=== PATIENT | female | born 1950 | race Caucasian/White ===

== ENCOUNTER 2024-10-24 07:05 | Outpatient (CLI) | payer MEDICARE, OTHER, SELFPAY | END 2024-10-24 07:06 | disposition home or self-care (01) | LOC: AMB 10-27 02:16 | PROVIDERS: PCP Nurse Practitioner Family; Visit Provider Family Medicine | DX: R06.09 Other forms of dyspnea (principal) | CPT/HCPCS: A0425; A0427 ==

== ENCOUNTER 2024-10-24 07:35 | Inpatient (IN) | payer MEDICARE, OTHER, SELFPAY ==
[2024-10-24] VITALS (24 sets, daily range): BP systolic 123–162; BP diastolic 61–106; PULSE 68–107; RESP 20; TEMP 36.6–37.4; O2SAT 71–94; BMI 18.2
--- NOTE | 2024-10-24 08:14 | ED_ITS ---
HPI - SOB/Dyspnea General Time Seen by Provider: 08:14 Date Seen: 10/24/24 Chief Complaint: Shortness of Breath/Dyspnea Stated Complaint: COPD exacerbation Time Seen by Provider: 10/24/24 08:07 Source: patient, EMS, RN notes reviewed and old records reviewed Mode of arrival: EMS Limitations: no limitations History of Present Illness HPI Narrative: 74-year-old female with oxygen-dependent COPD presents with shortness of breath. Patient notes increased shortness of breath for about the last 2-3 days with increased cough. Overnight felt like she could breathe well and called EMS this morning. Denies chest pain, some chills, no vomiting but does have some nausea. No abdominal pain or diarrhea. No lower extremity swelling. Says she has been using her nebulizer treatments as prescribed. Lives independently, uses a walker but has noticed decreased activity tolerance over the last couple of days per Related Data Home Medications ?Medication ?Instructions ?Recorded ?Confirmed albuterol sulfate 90 mcg/actuation 2 puff inhalation Q6H PRN wheezing 10/24/24 10/24/24 aerosol inhaler budesonide 0.5 mg/2 mL suspension mg 10/24/24 for nebulization bupropion HCl 300 mg 24 hr tablet, 300 mg PO QAM 10/24/24 10/24/24 extended release gabapentin 100 mg capsule 100 mg PO BID 10/24/24 10/24/24 ipratropium 0.5 mg-albuterol 3 mg 3 ml inhalation 3XD PRN 10/24/24 10/24/24 (2.5 mg base)/3 mL nebulization soln propranolol 40 mg tablet 40 mg PO BID 10/24/24 10/24/24 Allergies Allergy/AdvReac Type Severity Reaction Status Date / Time No Known Drug Allergies Allergy Verified 10/24/24 07:42 Exam Narrative: Exam Narrative: General: Well-developed and well-nourished, no acute distress, frail appearing Head: Atraumatic and normocephalic Eyes: Pupils are equal reactive, extraocular motions intact, conjunctiva clear ENT: External nose and ears are normal, posterior pharynx without erythema or exudate Neck: No midline cervical tenderness, full spontaneous range of motion the neck, trachea midline, no adenopathy Heart: Regular rate and rhythm no murmurs or thrills Lungs: Poor air movement throughout with inspiratory and expiratory wheezes predominantly on the left Abdomen: Soft, nontender, nondistended with active bowel sounds Musculoskeletal: No tenderness, deformity, or edema Neurologic: Awake, alert, and oriented x3, no gross focal neurologic deficits, cranial nerves intact as tested Psych: Mood and affect are appropriate Skin: No rashes Const: Vital Signs, click to edit/add: Vital Signs - 24 hr 10/24/24 07:40 10/24/24 07:41 10/24/24 07:43 Temperature 98.1 F Pulse Rate 107 H Pulse Rate [Pulse Oximeter] 103 H Respiratory Rate 20 Blood Pressure 146/69 H Blood Pressure [Ri ght Upper Arm] 146/69 H Pulse Oximetry 75 L 94 Oxygen Delivery Me thod Room Air Nasal Cannula Oxygen Flow Rate 3 10/24/24 07:45 10/24/24 08:00 10/24/24 08:01 Temperature Pulse Rate 107 H 103 H Pulse Rate [Pulse Oximeter] Respiratory Rate Blood Pressure 146/106 H Blood Pressure [Ri ght Upper Arm] Pulse Oximetry 89 92 92 Oxygen Delivery Me thod Nasal Cannula Nasal Cannula Nasal Cannula Oxygen Flow Rate 2 2 2 Course Course ED Course: Reviewed prior records from [facility], history of hypertension, COPD. Patient seen and examined, presents with shortness of breath for the last couple of days, oxygen dependent COPD at baseline. On exam here, says she feels little bit better after receiving nebulized treatment by EMS. Mild increased work of breathing, does become breathless with talking, poor air movement throughout both lung christensen with some inspiratory-expiratory wheezes on the left. Consider COPD exacerbation secondary to underlying infectious etiology either viral or CAP, heart failure. No history of trauma so hemothorax or pneumothorax unlikely. Labs ordered along with repeat nebulizer treatment. Reevaluation(s) Time of Reevaluation #1: 09:21 Reevaluation #1: Chest x-ray independently interpreted by me negative for acute findings. Labs independently interpreted by me with leukocytosis, mild anemia which is stable for the patient, basic panel with a low anion gap and elevated bicarb, respiratory panel negative, troponin negative. Time of Reevaluation #2: 09:29 Reevaluation #2: Updated patient with finding the plan, recommended admission and she is agreeable. Care discussed with Carlita Betancourt PA-C hospitalist who accepts patient for admission Vital Signs Vital signs: Initial Vital Signs Pulse Oximetry 75 L 10/24/24 07:40 Oxygen Delivery Method Room Air 10/24/24 07:40 Vital Signs Pulse Oximetry 75 L 10/24/24 07:40 Oxygen Delivery Method Room Air 10/24/24 07:40 Temperature 98.1 F 10/24/24 07:43 Pulse Rate 103 H 10/24/24 08:01 Respiratory Rate 20 10/24/24 07:43 Blood Pressure 146/106 H 10/24/24 08:01 Pulse Oximetry 92 10/24/24 08:01 Oxygen Delivery Method Nasal Cannula 10/24/24 08:01 Oxygen Flow Rate 2 10/24/24 08:01 Medications Administered Medications: Discontinued Medications Generic Name Dose Route Start Last Admin Trade Name Freq PRN Reason Stop Dose Admin Albuterol/Ipratropium 1 neb 10/24/24 08:24 10/24/24 08:51 Iprat-Albut 0.5-2.5 Mg/3 Ml Neb IH 10/24/24 08:25 1 neb ONCE ONE Administration MDM - SOB/Dyspnea Lab Data Labs: Lab Results 10/24/24 10/24/24 10/24/24 Range/Units 07:48 08:24 08:38 WBC 11.02 H (4.50-11.00) K/uL RBC 3.31 L (4.00-5.20) m/uL Hgb 10.9 L (12.0-16.0) gm/dL Hct 35.7 (33.0-51.0) % MCV 108 H (80-100) fL MCH 33 (26-34) pg MCHC 31 L (32-36) gm/dL RDW Coeff of Airam 11.7 (11.5-15.5) % Plt Count 214 (140-440) K/uL Neut % (Auto) 79.3 H (42.0-72.0) % Lymph % (Auto) 7.4 L (20-44) % [place] % (Auto) 12.1 H (0.0-11.0) % Eos % (Auto) 0.1 (0.0-7.0) % Baso % (Auto) 0.3 (0.0-3.0) % Neut # (Auto) 8.70 H (1.7-7.0) K/uL Lymph # (Auto) 0.80 L (0.90-2.90) K/uL [place] # (Auto) 1.30 H (0.00-0.90) K/UL Eos # (Auto) 0.00 (0.00-0.50) K/uL Baso # (Auto) 0.00 (0.00-0.30) K/uL Abs Immat Gran (auto) 0.10 (0.00-0.30) K/uL Imm/Tot Granulo (auto) 0.8 % Sodium 140 (135-149) mmol/L Potassium 4.3 (3.6-5.1) mmol/L Chloride 97 (96-114) mmol/L Carbon Dioxide 40 H (20-32) mmol/L Anion Gap 3 L (7-15) mEq/L BUN 15 (7-30) mg/dL Creatinine 0.5 (0.5-1.5) mg/dL Estimated GFR 98 ml/min Glucose 132 H (60-115) mg/dL Calcium 9.1 (8.4-10.6) mg/dL Magnesium 1.8 (1.5-2.6) mg/dL SARS-CoV-2 (PCR) Negative SARS-CoV-2 (Negative) Influenza Type A (PCR) Negative PCR FLU A (Negative) Influenza Type B (PCR) Negative PCR FLU B (Negative) RSV (PCR) Negative PCR RSV (Negative) POC Troponin I 0.01 (0.01-0.04) ng/ml Discharge Plan Discharge Clinical Impression: Acute exacerbation of chronic obstructive pulmonary disease, Chronic hypoxemic respiratory failure Patient Disposition: Admitted As Observation
--- NOTE | 2024-10-24 08:24 | CRLHL7_ITS ---
For Patients: As a result of the Century Cures Act, medical imaging exams and procedure reports are released immediately into your electronic medical record. You may view this report before your referring provider. If you have questions, please contact your health care provider. INDICATION: Dyspnea. Cough. COMPARISON: April 09, 2022 TECHNIQUE: Single-view portable study FINDINGS: TUBES AND LINES: None. HEART AND MEDIASTINUM: The heart size is normal. The mediastinal contour appears normal for patient age. LUNGS AND PLEURAL SPACES: Probable COPD. Basilar opacities favor atelectasis or scarring over aspiration or pneumonia. Left-sided findings probably related to remote granulomatous infection.The pleural spaces are unremarkable. OSSEOUS STRUCTURES: Demineralization, degenerative changes, scoliosis and postsurgical changes. IMPRESSION: COPD pattern. Basilar opacities favor atelectasis or scarring over aspiration or pneumonia. Left-sided findings probably indicating remote granulomatous infection. Dictated by Jeremy Barnard MD @ 10/24/2024 9:06:45 AM (Electronically Signed)
[2024-10-24 08:32] LABS: PCR FLU A Negative PCR FLU A (Negative); PCR FLU B Negative PCR FLU B (Negative); PCR RSV Negative PCR RSV (Negative); SARS PCR* Negative SARS-CoV-2 (Negative)
[2024-10-24 08:48] LABS: Basophils Percent Auto 0.3 % (0.0-3.0); Eosinophils Percent Auto 0.1 % (0.0-7.0); Hematocrit 35.7 % (33.0-51.0); Hemoglobin* 10.9 gm/dL (12.0-16.0); Immature Granulocytes Pct Auto 0.8 %; Lymphocytes Percent Auto 7.4 % (20-44); Mean Corpuscular HGB Conc 31 gm/dL (32-36); Mean Corpuscular Hemoglobin 33 pg (26-34); Mean Corpuscular Volume 108 fL (80-100); Monocytes Percent Auto 12.1 % (0.0-11.0); Neutrophils Percent Auto 79.3 % (42.0-72.0); Platelet Count* 214 K/uL (140-440); RDW Coefficient of Variation % 11.7 % (11.5-15.5); Red Blood Count 3.31 m/uL (4.00-5.20); White Blood Count* 11.02 K/uL (4.50-11.00)
[2024-10-24] MEDS: IPRAT-ALBUT 0.5-2.5 MG/3 ML NEB 1 NEB IH ×3 (08:51→19:57)
[2024-10-24 08:53] LABS: Slide Review Reflex No
[2024-10-24 08:59] LABS: Chloride* 97 mmol/L (96-114); Potassium* 4.3 mmol/L (3.6-5.1); Sodium* 140 mmol/L (135-149)
[2024-10-24 09:02] LABS: Blood Urea Nitrogen* 15 mg/dL (7-30); Creatinine* 0.5 mg/dL (0.5-1.5); Estimated Glomerular Filt Rate 98 ml/min; Glucose* 132 mg/dL (60-115)
[2024-10-24 09:03] LABS: Calcium* 9.1 mg/dL (8.4-10.6); Magnesium* 1.8 mg/dL (1.5-2.6)
[2024-10-24 09:09] LABS: Anion Gap 3 mEq/L (7-15); Carbon Dioxide* 40 mmol/L (20-32)
[2024-10-24 09:14] LABS: Troponin, Point-of-Care* 0.01 ng/ml (0.01-0.04)
[2024-10-24] MEDS: DOXYCYCLINE HYCLATE 100 MG PO ×2 (09:32→20:44)
[2024-10-24] MEDS: METHYLPREDNISOLONE SOD SUCC 62.5 MG/ML (125) 125 MG IVP ×3 (09:32→23:07)
[2024-10-24] MEDS: cefTRIAXone 1 GM in 0.9 % SODIUM CHLORIDE Mini-bag 100 ML IVPB (09:32)
--- NOTE | 2024-10-24 10:03 | PM.IMHP1 ---
Hospitalist- H&P: HPI History of Present Illness Date Seen: 10/24/24 Chief complaint: COPD exacerbation Narrative: Lolita Sevilla is a 74 year old female past medical history significant for COPD, oxygen dependent, typically 2-3 L, hypertension, peripheral neuropathy, depressive disorder, dysphagia, GERD, tremor is admitted to the medical floor from the ED for further management acute on chronic recurrent COPD exacerbation. Patient reports increasing shortness of breath, dyspnea on exertion, cough since Thanks. Tells me she can typically walk 6 ft at the most before having to rest. Last , she was not even able to walk 6 ft. She has had an increasing congested cough. She has been using her home nebulizers without relief. She denies recent fevers. Denies headaches or dizziness. Denies chest pain. Has had no nausea vomiting or diarrhea. Former smoker. Lives independently. Code status DNR/DNI. PCP is Linda Meneses NP, [facility] [place] Review of Systems Narrative: REVIEW OF SYSTEMS: Complete review of systems performed and negative unless otherwise stated in HPI or below. [facility] Medical History (Updated 10/24/24 @ 15:33 by Carlita Betancourt PA-C) Dysphagia ?R13.10 - Dysphagia, unspecified (ICD-10) COPD (chronic obstructive pulmonary disease) ?J44.9 - Chronic obstructive pulmonary disease, unspecified (ICD-10) Depressive disorder ?F32.A - Depression, unspecified (ICD-10) GERD (gastroesophageal reflux disease) ?K21.9 - Gastro-esophageal reflux disease without esophagitis (ICD-10) Peripheral neuropathy ?G62.9 - Polyneuropathy, unspecified (ICD-10) Hypertension ?I10 - Essential (primary) hypertension (ICD-10) Tremors of nervous system ?R25.1 - Tremor, unspecified (ICD-10) Respiratory failure with hypercapnia ?J96.92 - Respiratory failure, unspecified with hypercapnia (ICD-10) Acute on chronic hypoxic respiratory failure ?J96.21 - Acute and chronic respiratory failure with hypoxia (ICD-10) Social History What is your current living situation?: I presently have a place to live Problems where you live: no known problems Problems where you live details: no known problems In the past 12 months, utilities in danger of being shut off: no In the past 12 mos, have been you worried that your food would run out before you had money to buy more?: never true In the past 12 mos, the food you bought just didn't last and you didn't have money to buy more?: never true Highest level of school completed/degree received: some college, no degree Smoking Status: Former smoker Do you use any of these nicotine containing products: None How often do you have a drink containing alcohol: never AUDIT-C Alcohol total score: 0 Non-prescribed substance use: denies use Caffeine: No How often does anyone, including family, friends and others, physically hurt you: never How often does anyone, including family, friends and others, insult or talk down to you: never How often does anyone, including family, friends and others, threaten you with harm: never How often does anyone, including family, friends and others, scream or curse at you: never Meds Home Medications and Allergies Home Medications ?Medication ?Instructions ?Recorded ?Confirmed ?Type albuterol sulfate 90 mcg/actuation 2 puff inhalation Q6H PRN wheezing 10/24/24 10/24/24 History aerosol inhaler budesonide 0.5 mg/2 mL suspension 0.5 mg inhalation BID 10/24/24 10/24/24 History for nebulization bupropion HCl 300 mg 24 hr tablet, 300 mg PO QAM 10/24/24 10/24/24 History extended release gabapentin 100 mg capsule 100 mg PO BID 10/24/24 10/24/24 History ipratropium 0.5 mg-albuterol 3 mg 3 ml inhalation TID PRN 10/24/24 10/24/24 History (2.5 mg base)/3 mL nebulization soln propranolol 40 mg tablet 40 mg PO BID 10/24/24 10/24/24 History Allergies Allergy/AdvReac Type Severity Reaction Status Date / Time No Known Drug Allergies Allergy Verified 10/24/24 07:42 Exam Narrative: Exam Narrative: PHYSICAL EXAM General: Pleasant, conversant, NAD, cachectic HEENT: Normocephalic, atraumatic, sclera white, EOMI, oral mucosa moist Cardiovascular: RRR, S1S2. No pitting edema Pulmonary: Diminished breath sounds throughout, no expiratory wheezes, dyspnea noted on 1.5 L Abdominal: Soft, nondistended, NTTP Neurological: Alert, answering questions appropriately, cranial nerves intact, no focal findings Extremities: No gross joint deformity or swelling. AROMI. Neurovascularly intact Skin: Warm, dry. Const: Vital Signs, click to edit/add: Vital Signs - 24 hr 10/24/24 07:40 10/24/24 07:41 10/24/24 07:43 Temperature 98.1 F Pulse Rate 107 H Pulse Rate [Pulse Oximeter] 103 H Respiratory Rate 20 Blood Pressure 146/69 H Blood Pressure [Ri ght Upper Arm] 146/69 H Pulse Oximetry 75 L 94 Oxygen Delivery Me thod Room Air Nasal Cannula Oxygen Flow Rate 3 10/24/24 07:45 10/24/24 08:00 10/24/24 08:01 Temperature Pulse Rate 107 H 103 H Pulse Rate [Pulse Oximeter] Respiratory Rate Blood Pressure 146/106 H Blood Pressure [Ri ght Upper Arm] Pulse Oximetry 89 92 92 Oxygen Delivery Me thod Nasal Cannula Nasal Cannula Nasal Cannula Oxygen Flow Rate 2 2 2 10/24/24 08:30 10/24/24 08:45 10/24/24 09:00 Temperature Pulse Rate 100 101 H 97 Pulse Rate [Pulse Oximeter] Respiratory Rate Blood Pressure Blood Pressure [Ri ght Upper Arm] Pulse Oximetry 94 85 L 85 L Oxygen Delivery Me thod Nasal Cannula Nasal Cannula Nasal Cannula Oxygen Flow Rate 2 2 3 10/24/24 09:02 10/24/24 09:15 10/24/24 09:30 Temperature Pulse Rate 97 92 94 Pulse Rate [Pulse Oximeter] Respiratory Rate Blood Pressure 123/61 Blood Pressure [Ri ght Upper Arm] Pulse Oximetry 85 L 83 L 92 Oxygen Delivery Me thod Nasal Cannula Nasal Cannula Nasal Cannula Oxygen Flow Rate 3 3 3 10/24/24 09:45 Temperature Pulse Rate 96 Pulse Rate [Pulse Oximeter] Respiratory Rate Blood Pressure Blood Pressure [Ri ght Upper Arm] Pulse Oximetry 92 Oxygen Delivery Me thod Nasal Cannula Oxygen Flow Rate 3 Hospitalist - H&P: Result Labs Labs: Short CBC 10/24/24 Range/Units 08:38 WBC 11.02 H (4.50-11.00) K/uL Hgb 10.9 L (12.0-16.0) gm/dL Hct 35.7 (33.0-51.0) % Plt Count 214 (140-440) K/uL [facility] 10/24/24 08:38 Sodium 140 Potassium 4.3 Chloride 97 Carbon Dioxide 40 H BUN 15 Creatinine 0.5 Glucose 132 H Calcium 9.1 ECG Attestation: I personally reviewed and interpreted this ECG as follows: Interpretation: Sinus tachycardia, rate 102, QTC 450 Imaging Chest x-ray: Attestation: I have reviewed the pertinent imaging results. Radiologist's impression: COPD pattern. Basilar opacities favor atelectasis or scarring over aspiration or pneumonia. Left-sided findings probably indicating remote granulomatous infection. Assessment and Plan Assessment and plan (1) Acute on chronic hypoxic respiratory failure: Problem comment: -room-air oxygen saturation 75% in the ED -in setting of acute COPD exacerbation with hypercapnia -chronically oxygen dependent 2-3 L -RT for pulmonary support Status: Acute (2) Respiratory failure with hypercapnia: Problem comment: -VBG pH 7.351, pCO2 70, PO2 31.6, HC03 38. Will recheck at 5:00 p.m. -serum carbon dioxide 40, baseline > 30 -mentating appropriately though fatigued -RT recommending high-flow oxygen. Consider CPAP if necessary Status: Acute (3) Acute exacerbation of chronic obstructive pulmonary disease: Problem comment: -chronic oxygen dependent 2-3 L -continue oxygen supplementation to maintain saturations 88-92%, monitoring VBG for now -continue ceftriaxone and oral doxycycline as initiated in ED -triple swab negative, strep pneumo/Legionella ordered -prednisone 40 mg p.o. daily x5 days. Received methylprednisolone 125 mg in ED -scheduled nebs, p.r.n. nebs, Mucinex b.i.d. -incentive spirometry, aerobika Status: Acute (4) Tremors of nervous system: Problem comment: -continue propranolol b.i.d. Status: Acute Total Time Spent Total Time Spent: Total time spent caring for the patient today was 75 minutes. This includes time spent for the visit reviewing the chart, time spent during the visit, time spent after the visit and documentation and planning in coordination of care.
--- NOTE | 2024-10-24 10:05 | ED.NURSE ---
Pt report given to elias Blankenship RN. Pt to 262.
[2024-10-24] MEDS: PROPRANOLOL 20 MG TABLET 40 MG PO ×2 (12:31→20:44)
[2024-10-24] MEDS: MAGNESIUM IV 2 GM/50 ML PIGGYBACK IVPB (12:32)
[2024-10-24 12:42] LABS: HCO3 VBG 38 mmol/L (21-28); PO2 VBG 31.6 mmHG (25-47); pH VBG 7.351 (7.32-7.43)
[2024-10-24] MEDS: guaiFENesin 600 MG TAB.ER.12H PO ×2 (12:42→20:44)
[2024-10-24 12:44] LABS: PCO2 VBG 70 mmHG (40-50)
[2024-10-24 13:01] LABS: Lactate Dehydrogenase* 167 U/L (120-246)
--- NOTE | 2024-10-24 15:36 | RESP.RT ---
Pt here with COPD exacerbation. VBG on unit noted to be: 7.351, pCO2 70, PO2 31.6, HC03 38. She is not short of breath or in any distress. RR rate regular at 20, watching TV on 2L NC. She is chronically on 2L at home. BBS diminished, no wheezing noted. She does have a strong congested non productive cough. Decision to put on HFNC at 20-25L and FIO2 25-35%. Would give nebs around the clock also.
[2024-10-24 17:07] LABS: HCO3 VBG 38 mmol/L (21-28); PO2 VBG < 30.1 mmHG (25-47); pH VBG 7.381 (7.32-7.43)
[2024-10-24 17:14] LABS: PCO2 VBG 65 mmHG (40-50)
[2024-10-24] MEDS: ALBUTEROL SULFATE 2.5 MG/3 ML VIAL.NEB NEB ×2 (18:25→23:07)
--- NOTE | 2024-10-24 18:40 | PC.NURSE ---
End of shift: patient alert and oriented. VSS, on High flow settings at 20L 30%O2, and 36 temp. Not much of an appetite per patient but tolerating a reg diet. Patient denies n/v, c/o headache and possible sinus infection d/t left side of face pain. Denies pain anywhere else. Patient has a moist cough. Ambulates short distances with wheeled walker. IV in L hand SL.
[2024-10-24] MEDS: ENOXAPARIN 40 MG/0.4 ML INJ SUBCUT (20:44)
[2024-10-24] MEDS: GABAPENTIN 100 MG CAPSULE PO (20:44)
[2024-10-24] MEDS: SODIUM CHLORIDE 0.9 % (FLUSH) 10 ML SYRINGE 5 ML IVF (20:47)
[2024-10-24] MEDS: BUDESONIDE 0.5 MG/2ML NEB NEB (20:48)
[2024-10-24 23:38] LABS: NT Pro B Type NatriureticPept* 620 pg/mL
[2024-10-25] VITALS (9 sets, daily range): BP systolic 123–152; BP diastolic 74–93; PULSE 66–80; RESP 22–24; TEMP 36.5–37.2; O2SAT 69–94; BMI 18.2
[2024-10-25] MEDS: ALBUTEROL SULFATE 2.5 MG/3 ML VIAL.NEB NEB ×5 (02:24→21:36)
[2024-10-25] MEDS: IPRAT-ALBUT 0.5-2.5 MG/3 ML NEB 1 NEB IH ×4 (02:30→21:05)
[2024-10-25] MEDS: METHYLPREDNISOLONE SOD SUCC 62.5 MG/ML (125) 125 MG IVP ×4 (05:59→23:28)
--- NOTE | 2024-10-25 06:24 | PC.NURSE ---
End of shift [id number]: Pt has been A&O and afebrile overnight. VSS with exception to O2 needs. HFNC has been adjusted throughout the night, staying in the 20-25L and 25-35% FiO2 range. Pt?s O2 sats range from 68% to 93% overnight. She is Ax1 for transfers- sitting on rolling walker to and from while placing her on 2-3L NC for transfer. Pt does not c/o any pain, nausea or SOB. PIV in left AC SL and C/D/I. LS diminished in posterior bases but no wheezing heard. Pt continues to have a wet, non-productive cough. We still need a urine sample for legionella testing. ?
[2024-10-25 07:10] LABS: HCO3 VBG 39 mmol/L (21-28); PO2 VBG < 30.1 mmHG (25-47); pH VBG 7.386 (7.32-7.43)
[2024-10-25 07:17] LABS: PCO2 VBG 64 mmHG (40-50)
[2024-10-25 07:35] LABS: Chloride* 96 mmol/L (96-114); Sodium* 139 mmol/L (135-149)
[2024-10-25 07:36] LABS: Hematocrit 36.8 % (33.0-51.0); Hemoglobin* 11.3 gm/dL (12.0-16.0); Mean Corpuscular HGB Conc 31 gm/dL (32-36); Mean Corpuscular Hemoglobin 33 pg (26-34); Mean Corpuscular Volume 106 fL (80-100); Platelet Count* 251 K/uL (140-440); Red Blood Count 3.46 m/uL (4.00-5.20); White Blood Count* 14.83 K/uL (4.50-11.00)
[2024-10-25 07:38] LABS: Anion Gap 4 mEq/L (7-15); Blood Urea Nitrogen* 16 mg/dL (7-30); Calcium* 9.2 mg/dL (8.4-10.6); Carbon Dioxide* 39 mmol/L (20-32); Creatinine* 0.5 mg/dL (0.5-1.5); Est. Creatinine Clearance* 31.95; Estimated Glomerular Filt Rate 98 ml/min; Glucose* 133 mg/dL (60-115); Potassium* 4.5 mmol/L (3.6-5.1)
[2024-10-25 07:39] LABS: Slide Review Reflex No
[2024-10-25] MEDS: DOXYCYCLINE HYCLATE 100 MG PO ×2 (08:35→21:02)
[2024-10-25] MEDS: predniSONE 20 MG TABLET 40 MG PO (08:35)
[2024-10-25] MEDS: guaiFENesin 600 MG TAB.ER.12H PO ×2 (08:35→21:04)
[2024-10-25] MEDS: PROPRANOLOL 20 MG TABLET 40 MG PO ×2 (08:36→21:03)
[2024-10-25] MEDS: GABAPENTIN 100 MG CAPSULE PO ×2 (08:36→21:03)
[2024-10-25] MEDS: buPROPion XL 150 MG TABLET 300 MG PO (08:36)
[2024-10-25] MEDS: BUDESONIDE 0.5 MG/2ML NEB NEB ×2 (08:39→20:58)
[2024-10-25] MEDS: cefTRIAXone 1 GM in 0.9 % SODIUM CHLORIDE Mini-bag 100 ML IVPB (08:39)
[2024-10-25] MEDS: SODIUM CHLORIDE 0.9 % (FLUSH) 10 ML SYRINGE 5 ML IVF ×2 (08:45→20:58)
[2024-10-25 11:28] LABS: Legionella pneumo Ag Urine L. pneumo Negative (Negative); S pneumo Ag Urine S. pneumo Negative (Negative)
--- NOTE | 2024-10-25 12:20 | PM.IMPN1 ---
Progress Note: A&P Assessment and plan (1) Acute on chronic hypoxic respiratory failure: Problem details: -room-air oxygen saturation 75% in the ED. Baseline, per patient, is mid 80s -in setting of acute COPD exacerbation with hypercapnia -chronically oxygen dependent 2-3 L -RT for pulmonary support Status: Acute (2) Respiratory failure with hypercapnia: Problem details: -VBG pH 7.351, pCO2 70, PO2 31.6, HC03 38. PCO2 down trending, currently 64 -serum carbon dioxide 40, baseline > 30 -mentating appropriately though fatigued -RT recommending high-flow oxygen. Wean as able. Consider CPAP if necessary Status: Acute (3) Acute exacerbation of chronic obstructive pulmonary disease: Problem details: -chronic oxygen dependent 2-3 L -continue oxygen supplementation to maintain saturations 82-90%, monitoring VBG for now -continue ceftriaxone and oral doxycycline as initiated in ED -triple swab negative, strep pneumo/Legionella negative -prednisone 40 mg p.o. daily x5 days - changed to IV methylprednisolone. Received first dose methylprednisolone 125 mg in ED. (expected bump in WBC noted) -scheduled nebs, p.r.n. nebs, Mucinex b.i.d. -incentive spirometry, aerobika Status: Acute (4) Tremors of nervous system: Problem details: -continue propranolol b.i.d. Status: Acute Time Spent With Patient Total time spent: Total time spent caring for the patient today was 45 minutes. This includes time spent for the visit reviewing the chart, time spent during the visit, time spent after the visit and documentation and planning in coordination of care. Subjective Date Seen: 10/25/24 Interval history: Patient is seen sitting up in bed this morning. Reports feeling somewhat better. Chest congestion has loosened. Denies chest pain. Denies headache or dizziness. Remains afebrile. Overnight, oxygenation 82-90%. Patient reports her normal saturation when she is feeling well is mid 80s. PCO2 down trending. Exam Narrative: Exam Narrative: PHYSICAL EXAM General: Pleasant, conversant, NAD, cachectic Cardiovascular: RRR, S1S2. No pitting edema Pulmonary: Diminished breath sounds throughout, no expiratory wheezes, dyspnea Neurological: Alert, answering questions appropriately, cranial nerves intact, no focal findings Extremities: No gross joint deformity or swelling. AROMI. Neurovascularly intact Skin: Warm, dry. Const: Vital Signs, click to edit/add: Vital Signs - 24 hr 10/24/24 15:00 10/24/24 15:00 10/24/24 15:39 Temperature 97.8 F Pulse Rate [Pulse Oximeter] 68 Respiratory Rate 20 20 Blood Pressure [Ri ght Arm] 132/68 Pulse Oximetry 88 Oxygen Delivery Me thod High Flow Nasal Ca nnula Oxygen Flow Rate 25 20 Fraction of Inspir ed Oxygen 30 28 10/24/24 17:39 10/24/24 19:40 10/24/24 19:40 Temperature 99.3 F Pulse Rate [Pulse Oximeter] 77 Respiratory Rate 20 Blood Pressure [Ri ght Arm] 135/65 Pulse Oximetry 87 L Oxygen Delivery Me thod High Flow Nasal Ca nnula Oxygen Flow Rate 20 Fraction of Inspir ed Oxygen 30 30 30 10/24/24 21:01 10/24/24 23:17 10/24/24 23:17 Temperature Pulse Rate [Pulse Oximeter] 72 Respiratory Rate 20 Blood Pressure [Ri ght Arm] Pulse Oximetry Oxygen Delivery Me thod Oxygen Flow Rate Fraction of Inspir ed Oxygen 30 30 10/24/24 23:17 10/24/24 23:50 10/24/24 23:56 Temperature 98.1 F Pulse Rate [Pulse Oximeter] 72 Respiratory Rate 20 Blood Pressure [Ri ght Arm] 128/71 Pulse Oximetry 93 Oxygen Delivery Me thod High Flow Nasal Ca nnula Oxygen Flow Rate 20 Fraction of Inspir ed Oxygen 30 30 35 10/25/24 01:00 10/25/24 02:49 10/25/24 03:00 Temperature 98.9 F Pulse Rate [Pulse Oximeter] 80 Respiratory Rate 22 Blood Pressure [Ri ght Arm] 137/76 Pulse Oximetry 83 L Oxygen Delivery Me thod High Flow Nasal Ca nnula Oxygen Flow Rate 25 Fraction of Inspir ed Oxygen 35 30 30 10/25/24 03:33 10/25/24 05:00 10/25/24 07:00 Temperature Pulse Rate [Pulse Oximeter] Respiratory Rate Blood Pressure [Ri ght Arm] Pulse Oximetry Oxygen Delivery Me thod Oxygen Flow Rate Fraction of Inspir ed Oxygen 30 35 35 10/25/24 07:00 10/25/24 10:39 Temperature Pulse Rate [Pulse Oximeter] 80 Respiratory Rate 22 Blood Pressure [Ri ght Arm] 123/74 Pulse Oximetry 86 L Oxygen Delivery Me thod High Flow Nasal Ca nnula Oxygen Flow Rate 25 25 Fraction of Inspir ed Oxygen 35 35 Labs Labs: Laboratory Results - last 24 hr 10/24/24 10/24/24 10/24/24 08:38 12:37 17:01 WBC RBC Hgb Hct MCV MCH MCHC Plt Count VBG pH 7.351 7.381 VBG pCO2 70 H* 65 H* VBG pO2 31.6 < 30.1 VBG HCO3 38 H 38 H Sodium Potassium Chloride Carbon Dioxide Anion Gap BUN Creatinine Estimated Creat Clear Estimated GFR Glucose Calcium Lactate Dehydrogenase 167 NT-Pro-B Natriuret Pep 620 Urine L. pneumophilia Ag Urine Strep pneumoniae Ag 10/24/24 10/25/24 Unknown 07:01 WBC 14.83 H RBC 3.46 L Hgb 11.3 L Hct 36.8 MCV 106 H MCH 33 MCHC 31 L Plt Count 251 VBG pH 7.386 VBG pCO2 64 H* VBG pO2 < 30.1 VBG HCO3 39 H Sodium 139 Potassium 4.5 Chloride 96 Carbon Dioxide 39 H Anion Gap 4 L BUN 16 Creatinine 0.5 Estimated Creat Clear 31.95 Estimated GFR 98 Glucose 133 H Calcium 9.2 Lactate Dehydrogenase NT-Pro-B Natriuret Pep Urine L. pneumophilia Ag L. pneumo Negative Urine Strep pneumoniae Ag S. pneumo Negative
[2024-10-25] MEDS: BENZOCAINE/MENTHOL 1 EACH LOZENGE MUCOUS MEM (13:51)
--- NOTE | 2024-10-25 18:28 | PC.NURSE ---
shift note: pt place on 2L pnc O2 this a.m with sats 87-91%. pt denies c.p or pressure. pt has increased moist cough. Pt producing thick yellow phlegm. Pt using aerobika with prompting q1hr. Ls course throughout. IV patent. pt placed on cushion in bed due to upper buttocks red.
[2024-10-25] MEDS: ENOXAPARIN 40 MG/0.4 ML INJ SUBCUT (21:04)
[2024-10-26] VITALS (13 sets, daily range): BP systolic 146–180; BP diastolic 74–91; PULSE 64–72; RESP 20–24; TEMP 36.6–36.9; O2SAT 81–96
[2024-10-26] MEDS: ALBUTEROL SULFATE 2.5 MG/3 ML VIAL.NEB NEB ×5 (01:25→18:29)
[2024-10-26] MEDS: IPRAT-ALBUT 0.5-2.5 MG/3 ML NEB 1 NEB IH ×4 (02:36→21:01)
[2024-10-26] MEDS: METHYLPREDNISOLONE SOD SUCC 62.5 MG/ML (125) 125 MG IVP ×3 (06:05→18:29)
[2024-10-26 06:38] LABS: HCO3 VBG 41 mmol/L (21-28); PO2 VBG < 30.1 mmHG (25-47); pH VBG 7.353 (7.32-7.43)
[2024-10-26 06:40] LABS: PCO2 VBG 73 mmHG (40-50)
[2024-10-26 06:47] LABS: Hematocrit 36.9 % (33.0-51.0); Hemoglobin* 11.3 gm/dL (12.0-16.0); Mean Corpuscular HGB Conc 31 gm/dL (32-36); Mean Corpuscular Hemoglobin 33 pg (26-34); Mean Corpuscular Volume 107 fL (80-100); Platelet Count* 282 K/uL (140-440); Red Blood Count 3.46 m/uL (4.00-5.20); White Blood Count* 17.57 K/uL (4.50-11.00)
[2024-10-26 06:53] LABS: Slide Review Reflex No
[2024-10-26 07:09] LABS: Chloride* 97 mmol/L (96-114); Potassium* 4.1 mmol/L (3.6-5.1); Sodium* 140 mmol/L (135-149)
[2024-10-26 07:12] LABS: Creatinine* 0.5 mg/dL (0.5-1.5); Est. Creatinine Clearance* 32.18; Estimated Glomerular Filt Rate 98 ml/min
[2024-10-26 07:13] LABS: Blood Urea Nitrogen* 17 mg/dL (7-30); Glucose* 135 mg/dL (60-115)
[2024-10-26 07:20] LABS: Anion Gap 8 mEq/L (7-15); Carbon Dioxide* 35 mmol/L (20-32)
--- NOTE | 2024-10-26 07:47 | PC.NURSE ---
Pt is alert and oriented x3. Afebrile. Pt denies pain, chest pain, and N/V. SOB is noted and reported with exertion. Pt was on 1-2 liters throughout night to maintains O2 stats of 82-90%. Pt is up SBA with walker and gait belt to bathroom, voiding, and tolerating a regular diet.
[2024-10-26] MEDS: BUDESONIDE 0.5 MG/2ML NEB NEB ×2 (08:48→21:02)
[2024-10-26] MEDS: DOXYCYCLINE HYCLATE 100 MG PO ×2 (09:26→21:01)
[2024-10-26] MEDS: GABAPENTIN 100 MG CAPSULE PO ×2 (09:26→21:01)
[2024-10-26] MEDS: SODIUM CHLORIDE 0.9 % (FLUSH) 10 ML SYRINGE 5 ML IVF ×2 (09:26→21:02)
[2024-10-26] MEDS: buPROPion XL 150 MG TABLET 300 MG PO (09:26)
[2024-10-26] MEDS: guaiFENesin 600 MG TAB.ER.12H PO ×2 (09:26→21:01)
[2024-10-26] MEDS: PROPRANOLOL 20 MG TABLET 40 MG PO ×2 (09:26→21:01)
[2024-10-26] MEDS: cefTRIAXone 1 GM in 0.9 % SODIUM CHLORIDE Mini-bag 100 ML IVPB (09:28)
--- NOTE | 2024-10-26 11:21 | PM.IMPN1 ---
Progress Note: A&P Assessment and plan (1) Acute on chronic hypoxic respiratory failure: Problem details: -room-air oxygen saturation 75% in the ED. Baseline, per patient, is mid 80s -in setting of acute COPD exacerbation with hypercapnia -chronically oxygen dependent 2-3 L -RT for pulmonary support Status: Acute (2) Respiratory failure with hypercapnia: Problem details: -VBG pH 7.351, pCO2 70, PO2 31.6, HC03 38. PCO2 down trending, currently 64 -serum carbon dioxide 40, baseline > 30 -mentating appropriately though fatigued -RT recommending high-flow oxygen. Wean as able. Consider CPAP if necessary 10/26 was off of high-flow yesterday, pCO2 has increased, congestion remains. Will restart high-flow today and monitor improvement Status: Acute (3) Acute exacerbation of chronic obstructive pulmonary disease: Problem details: -chronic oxygen dependent 2-3 L -continue oxygen supplementation to maintain saturations 82-90%, monitoring VBG for now -continue ceftriaxone and oral doxycycline as initiated in ED -triple swab negative, strep pneumo/Legionella negative -prednisone 40 mg p.o. daily x5 days - changed to IV methylprednisolone. Received first dose methylprednisolone 125 mg in ED. (expected bump in WBC noted) -scheduled nebs, p.r.n. nebs, Mucinex b.i.d. -incentive spirometry, aerobika Status: Acute (4) Tremors of nervous system: Problem details: -continue propranolol b.i.d. Status: Acute (5) Dysphagia: Problem details: -previously evaluated by ENT, Neurology, GI. Most recent EGD 07/2023. Did not complete further recommended studies; needs sedation for some per patient report -PARTS SALES MANAGER for limited evaluation during hospital course -will f/u with PCP again for referrals for ongoing evaluation Status: Acute (6) Constipation: Problem details: -last BM 10/22. H/o chronic constipation but not on a bowel regimen at home -Senna/Docusate bid, Miralax now and prn. Recommend daily psyllium Status: Acute Time Spent With Patient Total time spent: Total time spent caring for the patient today was 45 minutes. This includes time spent for the visit reviewing the chart, time spent during the visit, time spent after the visit and documentation and planning in coordination of care. Subjective Date Seen: 10/26/24 Interval history: Patient is seen sitting up in bed this morning having just finished a nebulizer treatment. Feeling okay. Cough loosening. Remains dyspneic. This morning's pCO2 is elevated to 73 again. Apparently there was concern with dysfunctioning of the high-flow machine so she had been on oxygen per nasal cannula the entire day. Remains afebrile. Denies chest pain. No headache or dizziness. Tolerating orals without nausea vomiting. Exam Narrative: Exam Narrative: PHYSICAL EXAM General: Pleasant, conversant, NAD, cachectic Cardiovascular: RRR, S1S2. No pitting edema Pulmonary: Diminished breath sounds throughout, no expiratory wheezes, dyspnea Neurological: Alert, answering questions appropriately, cranial nerves intact, no focal findings Extremities: No gross joint deformity or swelling. AROMI. Neurovascularly intact Skin: Warm, dry. Const: Vital Signs, click to edit/add: Vital Signs - 24 hr 10/25/24 15:00 10/25/24 19:17 10/25/24 23:20 Temperature 97.7 F 98.6 F 98.1 F Pulse Rate [Pulse Oximeter] 73 72 66 Respiratory Rate 22 24 24 Blood Pressure [Ri ght Arm] 140/93 H 148/76 H 152/86 H Pulse Oximetry 91 94 91 Oxygen Delivery Me thod Nasal Cannula Nasal Cannula Nasal Cannula Oxygen Flow Rate 2 2 1 10/25/24 23:20 10/26/24 02:35 10/26/24 06:41 Temperature 98.4 F Pulse Rate [Pulse Oximeter] 66 71 Respiratory Rate 24 20 Blood Pressure [Ri ght Arm] 149/78 H Pulse Oximetry 90 92 Oxygen Delivery Me thod Nasal Cannula Oxygen Flow Rate 1.5 1 Labs Labs: Laboratory Results - last 24 hr 10/24/24 10/26/24 Unknown 06:14 WBC 17.57 H RBC 3.46 L Hgb 11.3 L Hct 36.9 MCV 107 H MCH 33 MCHC 31 L Plt Count 282 VBG pH 7.353 VBG pCO2 73 H* VBG pO2 < 30.1 VBG HCO3 41 H Sodium 140 Potassium 4.1 Chloride 97 Carbon Dioxide 35 H Anion Gap 8 BUN 17 Creatinine 0.5 Estimated Creat Clear 32.18 Estimated GFR 98 Glucose 135 H Calcium 9.0 Urine L. pneumophilia Ag L. pneumo Negative Urine Strep pneumoniae Ag S. pneumo Negative
[2024-10-26] MEDS: polyethylene glycoL 3350 17 GM PACK PO (12:27)
[2024-10-26] MEDS: SENNOSIDES/DOCUSATE TABLET 1 TAB PO ×2 (12:28→21:01)
[2024-10-26] MEDS: ONDANSETRON 2 MG/ML inj 4 MG IVP (14:43)
--- NOTE | 2024-10-26 15:49 | PC.SOCIAL ---
Discharge planning: lime kiln worker attempted to meet with pt x2 today and she was either with other disciplines or sleeping. lime kiln worker will attempt to meet with pt again tomorrow. Social work to follow-up as needed.
--- NOTE | 2024-10-26 20:39 | PC.NURSE ---
shift note: pt states this a.m feeling of sob and chest pain. Dr. Felix notified. Pt placed on HiFlo by Resp therapy. Pt maintaing sats 80-96% on Hiflo. LS course this a.m and diminished this afternoon with wheezing. IV patent. Pt c/o constipation. Dr. Felix notified and order for miralax, senna-lax.
[2024-10-26] MEDS: ENOXAPARIN 40 MG/0.4 ML INJ SUBCUT (21:02)
[2024-10-26] MEDS: ACETAMINOPHEN 325 MG TABLET 650 MG PO (21:07)
[2024-10-27] VITALS (18 sets, daily range): BP systolic 149–174; BP diastolic 78–97; PULSE 55–70; RESP 20–24; TEMP 36.1–36.9; O2SAT 82–93
[2024-10-27] MEDS: METHYLPREDNISOLONE SOD SUCC 62.5 MG/ML (125) 125 MG IVP ×2 (00:34→06:40)
[2024-10-27] MEDS: ALBUTEROL SULFATE 2.5 MG/3 ML VIAL.NEB NEB ×6 (02:54→21:20)
[2024-10-27] MEDS: IPRAT-ALBUT 0.5-2.5 MG/3 ML NEB 1 NEB IH ×4 (02:56→20:54)
[2024-10-27] MEDS: BENZOCAINE/MENTHOL 1 EACH LOZENGE MUCOUS MEM (04:40)
--- NOTE | 2024-10-27 04:51 | PC.NURSE ---
Shift Note: Pt friendly and cooperative, able to verbalize her needs. BP's hypertensive, 160's-190 systolically. Pt did c/o of mild headache which she stated resolved after PRN Tylenol was administered. Pt was mostly able to maintain SpO2 of 82-88% on HFNC 30L/30% FiO2. She did need to be increased to 35% FiO2 for about an hour twice this shift, SpO2 was dropping to 80%. This was noted particularly after exerting herself for example, she was lying in bed reaching across her tray table to move around and organize her items. This activity caused her SpO2 drop below the ordered threshold. She continues to TCDB and was able to expectorate thick light green mucous.
[2024-10-27] MEDS: SODIUM CHLORIDE 0.9 % (FLUSH) 10 ML SYRINGE 5 ML IVF ×3 (06:41→19:34)
[2024-10-27 06:54] LABS: HCO3 VBG 41 mmol/L (21-28); PO2 VBG 39.6 mmHG (25-47); pH VBG 7.422 (7.32-7.43)
[2024-10-27 06:56] LABS: PCO2 VBG 63 mmHG (40-50)
[2024-10-27 06:57] LABS: Hematocrit 36.2 % (33.0-51.0); Hemoglobin* 11.3 gm/dL (12.0-16.0); Mean Corpuscular HGB Conc 31 gm/dL (32-36); Mean Corpuscular Hemoglobin 33 pg (26-34); Mean Corpuscular Volume 105 fL (80-100); Platelet Count* 289 K/uL (140-440); Red Blood Count 3.46 m/uL (4.00-5.20); White Blood Count* 13.38 K/uL (4.50-11.00)
[2024-10-27 07:01] LABS: Slide Review Reflex No
[2024-10-27 07:09] LABS: Chloride* 96 mmol/L (96-114); Sodium* 139 mmol/L (135-149)
[2024-10-27 07:10] LABS: Potassium* 3.9 mmol/L (3.6-5.1)
[2024-10-27 07:12] LABS: Creatinine* 0.5 mg/dL (0.5-1.5); Est. Creatinine Clearance* 32.34; Estimated Glomerular Filt Rate 98 ml/min
[2024-10-27 07:13] LABS: Blood Urea Nitrogen* 16 mg/dL (7-30); Glucose* 125 mg/dL (60-115)
[2024-10-27 07:20] LABS: Anion Gap 6 mEq/L (7-15); Carbon Dioxide* 37 mmol/L (20-32)
[2024-10-27] MEDS: BUDESONIDE 0.5 MG/2ML NEB NEB ×2 (08:40→21:00)
[2024-10-27] MEDS: SENNOSIDES/DOCUSATE TABLET 1 TAB PO ×2 (08:40→21:00)
[2024-10-27] MEDS: buPROPion XL 150 MG TABLET 300 MG PO (08:40)
[2024-10-27] MEDS: guaiFENesin 600 MG TAB.ER.12H PO ×2 (08:40→20:57)
[2024-10-27] MEDS: GABAPENTIN 100 MG CAPSULE PO ×2 (08:40→20:57)
[2024-10-27] MEDS: PROPRANOLOL 20 MG TABLET 40 MG PO ×2 (08:40→20:56)
[2024-10-27] MEDS: DOXYCYCLINE HYCLATE 100 MG PO ×2 (08:40→20:57)
[2024-10-27] MEDS: cefTRIAXone 1 GM in 0.9 % SODIUM CHLORIDE Mini-bag 100 ML IVPB (08:40)
[2024-10-27] MEDS: ONDANSETRON 2 MG/ML inj 4 MG IVP (10:12)
--- NOTE | 2024-10-27 10:30 | P.IMPN_ITS ---
Progress Note: A&P Assessment and plan (1) Acute on chronic hypoxic respiratory failure: Problem details: -room-air oxygen saturation 75% in the ED. Baseline, per patient, is mid 80s -in setting of acute COPD exacerbation with hypercapnia -chronically oxygen dependent 2-3 L -RT for pulmonary support -small doses morphine prn comfort (her hooking machine operator once told her this might be helpful) Status: Acute (2) Respiratory failure with hypercapnia: Problem details: -VBG pH 7.351, pCO2 70, PO2 31.6, HC03 38 on admission -serum carbon dioxide 40, baseline >30 -RT recommending high-flow oxygen. Wean as able. Consider CPAP if necessary 10/26: was off of high-flow yesterday, pCO2 has increased, congestion remains. Will restart high-flow today and monitor improvement 10/27: pCO2 improved. Has been on high flow >24 hours. VBGs as needed at this point Status: Acute (3) Acute exacerbation of chronic obstructive pulmonary disease: Problem details: -chronic oxygen dependent 2-3 L -continue oxygen supplementation to maintain saturations 82-90%, monitoring VBG for now -continue ceftriaxone and oral doxycycline as initiated in ED -triple swab negative, strep pneumo/Legionella negative -prednisone 40 mg p.o. daily x5 days - changed to IV methylprednisolone. Received first dose methylprednisolone 125 mg in ED. (expected bump in WBC noted) -scheduled nebs, p.r.n. nebs, Mucinex b.i.d. -incentive spirometry, aerobika 10/27: will decrease IV methylprednisolone from Q6H to Q8H. Continue to wean as able Status: Acute (4) Tremors of nervous system: Problem details: -continue propranolol b.i.d. 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 Most recent EGD 07/2023. Did not complete further recommended studies; needs sedation for some per patient report -INVENTORY SPECIALIST consulted, recommendations reviewed, essentially not combining different food consistencies. Agrees with resuming outpatient work up following discharge -will f/u with PCP again for referrals (likely lapsed now) for ongoing outpatient evaluation Status: Acute (6) Constipation: Problem details: -last BM 10/22. H/o chronic constipation but not on a bowel regimen at home -Senna/Docusate bid, Miralax daily until stooling. Recommend daily psyllium Status: Acute Time Spent With Patient Total time spent: Total time spent caring for the patient today was 45 minutes. This includes time spent for the visit reviewing the chart, time spent during the visit, time spent after the visit and documentation and planning in coordination of care. Subjective Date Seen: 10/27/24 Interval history: Patient is sitting up in bed this morning. Reports feeling a little nauseous but has not vomited. Eating breakfast currently. Respiratory therapy has noted that she coughs when she takes a bite of cereal with milk. Remains afebrile. Has been able to cough up some phlegm now. Congestion loosening. Wants to fill out POLST form. Exam Narrative: Exam Narrative: PHYSICAL EXAM General: Pleasant, NAD, cachectic Cardiovascular: RRR, S1S2. No pitting edema Pulmonary: Diminished breath sounds throughout, no expiratory wheezes, dyspnea essentially unchanged Neurological: Alert, answering questions appropriately, cranial nerves intact, no focal findings Extremities: No gross joint deformity or swelling. AROMI. Neurovascularly intact Skin: Warm, dry. Const: Vital Signs, click to edit/add: Vital Signs - 24 hr 10/26/24 12:08 10/26/24 12:57 10/26/24 14:07 Temperature Pulse Rate [Pulse Oximeter] Respiratory Rate Blood Pressure [Ri ght Arm] Pulse Oximetry Oxygen Delivery Me thod Oxygen Flow Rate 30 Fraction of Inspir ed Oxygen 30 30 30 10/26/24 14:45 10/26/24 15:00 10/26/24 15:00 Temperature 98 F 98 F Pulse Rate [Pulse Oximeter] 68 68 68 Respiratory Rate 24 24 24 Blood Pressure [Ri ght Arm] 180/88 H 180/88 H Pulse Oximetry 96 96 Oxygen Delivery Me thod High Flow Nasal Ca nnula High Flow Nasal Ca nnula Oxygen Flow Rate 30 30 Fraction of Inspir ed Oxygen 30 30 10/26/24 16:00 10/26/24 18:00 10/26/24 19:00 Temperature 98.1 F Pulse Rate [Pulse Oximeter] 71 Respiratory Rate 24 Blood Pressure [Ri ght Arm] 146/79 H Pulse Oximetry 89 Oxygen Delivery Me thod High Flow Nasal Ca nnula Oxygen Flow Rate 30 Fraction of Inspir ed Oxygen 30 30 35 10/26/24 20:00 10/26/24 22:00 10/26/24 23:00 Temperature 98.4 F Pulse Rate [Pulse Oximeter] 64 Respiratory Rate 22 Blood Pressure [Ri ght Arm] 174/91 H Pulse Oximetry 91 Oxygen Delivery Me thod High Flow Nasal Ca nnula Oxygen Flow Rate 30 Fraction of Inspir ed Oxygen 35 35 30 10/26/24 23:00 10/27/24 00:00 10/27/24 02:00 Temperature Pulse Rate [Pulse Oximeter] 64 Respiratory Rate 22 Blood Pressure [Ri ght Arm] Pulse Oximetry Oxygen Delivery Me thod Oxygen Flow Rate Fraction of Inspir ed Oxygen 30 30 10/27/24 03:00 10/27/24 04:00 10/27/24 06:00 Temperature 97.5 F L Pulse Rate [Pulse Oximeter] 64 Respiratory Rate 24 Blood Pressure [Ri ght Arm] 167/90 H Pulse Oximetry 85 L Oxygen Delivery Me thod High Flow Nasal Ca nnula Oxygen Flow Rate 30 Fraction of Inspir ed Oxygen 30 35 35 10/27/24 08:00 10/27/24 08:00 Temperature 98.2 F Pulse Rate [Pulse Oximeter] 70 70 Respiratory Rate 20 20 Blood Pressure [Ri ght Arm] 171/94 H Pulse Oximetry 92 Oxygen Delivery Me thod Nasal Cannula Oxygen Flow Rate 1.5 Fraction of Inspir ed Oxygen Labs Labs: Laboratory Results - last 24 hr 10/27/24 06:42 WBC 13.38 H RBC 3.46 L Hgb 11.3 L Hct 36.2 MCV 105 H MCH 33 MCHC 31 L Plt Count 289 VBG pH 7.422 VBG pCO2 63 H* VBG pO2 39.6 VBG HCO3 41 H Sodium 139 Potassium 3.9 Chloride 96 Carbon Dioxide 37 H Anion Gap 6 L BUN 16 Creatinine 0.5 Estimated Creat Clear 32.34 Estimated GFR 98 Glucose 125 H Calcium 9.0
[2024-10-27] MEDS: METHYLPREDNISOLONE SOD SUCC 62.5 MG/ML (125) 80 MG IVP ×2 (13:50→19:32)
--- NOTE | 2024-10-27 15:14 | PC.SOCIAL ---
Discharge planning: Assisted provider on duty with obtaining a blank POLST form to complete with the pt. Social work to follow-up as needed.
--- NOTE | 2024-10-27 17:39 | PC.NURSE ---
Shift Summary: patient pleasant and cooperative. Up with one assist, walker and gait belt. Continues to need hiflow when in bed and 2L/NC when eating/up to bathroom. Vitals stable. Had x1 emesis this morning after speech eval, patient stated she wasn't hungry during the eval and had to eat causing her to vomit. Cough noted after each bite of cereal and milk, per speech have patient eat chunky soup and cereal with a fork since difference in textures/consistency may be difficult for her.
--- NOTE | 2024-10-27 20:04 | RESP.RT ---
Patient has been on .30HFNC @ 30Lpm SATing 88-94%. Patient appears to aspirate when eating and should be taken off of HFNC while eating. Patient states that next occurrence she would prefer to be placed on comfort cares.
[2024-10-27] MEDS: ENOXAPARIN 40 MG/0.4 ML INJ SUBCUT (20:56)
[2024-10-27] MEDS: ACETAMINOPHEN 325 MG TABLET 650 MG PO (21:15)
[2024-10-28] VITALS (15 sets, daily range): BP systolic 155–172; BP diastolic 82–97; PULSE 59–79; RESP 20; TEMP 36.5–36.8; O2SAT 84–95
[2024-10-28] MEDS: ALBUTEROL SULFATE 2.5 MG/3 ML VIAL.NEB NEB ×6 (01:12→22:10)
[2024-10-28] MEDS: METHYLPREDNISOLONE SOD SUCC 62.5 MG/ML (125) 80 MG IVP ×2 (01:12→07:42)
[2024-10-28] MEDS: IPRAT-ALBUT 0.5-2.5 MG/3 ML NEB 1 NEB IH ×4 (02:01→20:19)
[2024-10-28 06:40] LABS: Hematocrit 37.7 % (33.0-51.0); Hemoglobin* 11.7 gm/dL (12.0-16.0); Mean Corpuscular HGB Conc 31 gm/dL (32-36); Mean Corpuscular Hemoglobin 32 pg (26-34); Mean Corpuscular Volume 103 fL (80-100); Platelet Count* 255 K/uL (140-440); Red Blood Count 3.67 m/uL (4.00-5.20)
[2024-10-28 06:54] LABS: Slide Review Reflex No
[2024-10-28 07:05] LABS: Chloride* 95 mmol/L (96-114)
[2024-10-28 07:06] LABS: Potassium* 3.5 mmol/L (3.6-5.1); Sodium* 137 mmol/L (135-149)
[2024-10-28 07:08] LABS: Creatinine* 0.5 mg/dL (0.5-1.5); Est. Creatinine Clearance* 31.59; Estimated Glomerular Filt Rate 98 ml/min
[2024-10-28 07:09] LABS: Blood Urea Nitrogen* 21 mg/dL (7-30); Glucose* 122 mg/dL (60-115)
[2024-10-28 07:16] LABS: Anion Gap 6 mEq/L (7-15); Carbon Dioxide* 36 mmol/L (20-32)
--- NOTE | 2024-10-28 07:24 | PC.NURSE ---
shift note: Pt has been on Hyflo throughout the night with flow rate of 30. Alert and oriented. Treatment given as prescribed. Vitally stable.
[2024-10-28] MEDS: BUDESONIDE 0.5 MG/2ML NEB NEB ×2 (07:42→20:16)
[2024-10-28] MEDS: SODIUM CHLORIDE 0.9 % (FLUSH) 10 ML SYRINGE 5 ML IVF ×3 (07:45→19:40)
[2024-10-28] MEDS: ONDANSETRON 2 MG/ML inj 4 MG IVP ×2 (08:38→18:17)
--- NOTE | 2024-10-28 09:02 | RESP.RT ---
Patient sitting up in bed on HFNC FiO2 30%, Flow 30 Lpm, Temperature 36 degrees (C), Patient uses NC with activity in room to maintain SaO2 between 82-90%. BBS slightly diminished, fair air movement, no wheezes of rales noted. Use Aerobika fairly, fair exhalation effort, no cough.
--- NOTE | 2024-10-28 09:10 | PM.IMPN1 ---
Progress Note: A&P Assessment and plan (1) Acute on chronic hypoxic respiratory failure: Problem details: -room-air oxygen saturation 75% in the ED. Baseline, per patient, is mid 80s -in setting of acute COPD exacerbation with hypercapnia -chronically oxygen dependent 2-3 L -RT for pulmonary support -small doses morphine prn comfort (her call circuit worker once told her this might be helpful) - 10/28 clinically stabilized and possibly improving, decrease Solu-Medrol from 80 mg Q 6h to 60 mg q.6h. Has been given 3 days of ceftriaxone and doxycycline. She remains afebrile. Finish out 5 days of ceftriaxone and continue doxycycline for a total of 10 days. Status: Acute (2) Acute exacerbation of chronic obstructive pulmonary disease: Problem details: -chronic oxygen dependent 2-3 L -continue oxygen supplementation to maintain saturations 82-90%, monitoring VBG for now -continue ceftriaxone and oral doxycycline as initiated in ED -triple swab negative, strep pneumo/Legionella negative -prednisone 40 mg p.o. daily x5 days - changed to IV methylprednisolone. Received first dose methylprednisolone 125 mg in ED. (expected bump in WBC noted) -scheduled nebs, p.r.n. nebs, Mucinex b.i.d. -incentive spirometry, aerobika 10/27: will decrease IV methylprednisolone from Q6H to Q8H. Continue to wean as able 10/28: Has been on methylprednisolone 80 mg IV q.6 hours for about 18 hours now, decreased to 60 mg IV q.6h and monitor. Continue high-flow nasal cannula, weaning as able Status: Acute (3) Respiratory failure with hypercapnia: Problem details: -VBG pH 7.351, pCO2 70, PO2 31.6, HC03 38 on admission -serum carbon dioxide 40, baseline >30 -RT recommending high-flow oxygen. Wean as able. Consider CPAP if necessary 10/26: was off of high-flow yesterday, pCO2 has increased, congestion remains. Will restart high-flow today and monitor improvement 10/27: pCO2 improved. Has been on high flow >24 hours. VBGs as needed at this point Status: Acute (4) Tremors of nervous system: Problem details: -continue propranolol b.i.d. 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 Most recent EGD 07/2023. Did not complete further recommended studies; needs sedation for some per patient report -[employer] consulted, recommendations reviewed, essentially not combining different food consistencies. Agrees with resuming outpatient work up following discharge -will f/u with PCP again for referrals (likely lapsed now) for ongoing outpatient evaluation Status: Acute (6) Constipation: Problem details: -last BM 10/28 (this am). H/o chronic constipation but not on a bowel regimen at home -continue Senna/Docusate bid, change Miralax to daily as needed. Recommend daily psyllium at home Status: Acute Time Spent With Patient Total time spent: Total time spent caring for the patient today was 35 minutes. This includes time spent for the visit reviewing the chart, time spent during the visit, time spent after the visit and documentation and planning in coordination of care. Subjective Time Seen by Provider: 08:17 Date Seen: 10/28/24 Interval history: Lolita tells me that she feels a little worse than yesterday, weaker and lightheaded when getting to the bathroom. She endorses BM today. She's asked me to come back and talk with her to give him an update when he comes in later. Exam Narrative: Exam Narrative: General: Mild respiratory distress, speaking in broken sentences. Awake, alert, oriented x3. Answers questions appropriately. Thin, cachectic. No pallor. No jaundice. Oropharynx: Clear. Mucous membranes moist. Cardiovascular: Regular rate and rhythm. No murmurs, gallops, or rubs. Respiratory: Some air movement, no expiratory wheezes, dyspneic as above. Abdomen: Bowel sounds present. Soft, nondistended, nontender. Extremities: No lower extremity edema. Const: Vital Signs, click to edit/add: Vital Signs - 24 hr 10/27/24 10:00 10/27/24 10:34 10/27/24 12:00 Temperature 97.9 F Pulse Rate [Pulse Oximeter] 68 Respiratory Rate 22 Blood Pressure [Ri ght Arm] 174/97 H Pulse Oximetry 90 Oxygen Delivery Me thod High Flow Nasal Ca nnula Oxygen Flow Rate Fraction of Inspir ed Oxygen 35 35 10/27/24 14:00 10/27/24 15:58 10/27/24 15:59 Temperature 98.4 F Pulse Rate [Pulse Oximeter] 68 Respiratory Rate 20 Blood Pressure [Ri ght Arm] 168/90 H Pulse Oximetry 93 Oxygen Delivery Me thod High Flow Nasal Ca nnula Oxygen Flow Rate Fraction of Inspir ed Oxygen 35 35 10/27/24 18:56 10/27/24 19:00 10/27/24 19:30 Temperature 97.9 F Pulse Rate [Pulse Oximeter] 67 Respiratory Rate 20 Blood Pressure [Ri ght Arm] 149/78 H Pulse Oximetry 93 Oxygen Delivery Me thod High Flow Nasal Ca nnula Oxygen Flow Rate Fraction of Inspir ed Oxygen 35 30 30 10/27/24 20:03 10/27/24 22:00 10/27/24 23:00 Temperature Pulse Rate [Pulse Oximeter] 67 Respiratory Rate 20 Blood Pressure [Ri ght Arm] Pulse Oximetry Oxygen Delivery Me thod Oxygen Flow Rate 30 Fraction of Inspir ed Oxygen 30 30 10/27/24 23:00 10/27/24 23:20 10/28/24 01:55 Temperature 96.9 F L 97.8 F Pulse Rate [Pulse Oximeter] 55 L 61 Respiratory Rate 20 20 Blood Pressure [Ri ght Arm] 153/87 H 166/96 H Pulse Oximetry 86 L 87 L Oxygen Delivery Me thod High Flow Nasal Ca nnula High Flow Nasal Ca nnula Oxygen Flow Rate 30 30 Fraction of Inspir ed Oxygen 30 30 30 10/28/24 01:57 10/28/24 04:00 10/28/24 06:00 Temperature Pulse Rate [Pulse Oximeter] Respiratory Rate Blood Pressure [Ri ght Arm] Pulse Oximetry Oxygen Delivery Me thod Oxygen Flow Rate Fraction of Inspir ed Oxygen 30 30 30 10/28/24 07:53 10/28/24 07:55 10/28/24 08:57 Temperature 98.2 F Pulse Rate [Pulse Oximeter] 67 Respiratory Rate 20 Blood Pressure [Ri ght Arm] 169/94 H Pulse Oximetry 89 Oxygen Delivery Me thod High Flow Nasal Ca nnula Oxygen Flow Rate 30 Fraction of Inspir ed Oxygen 30 30 10/28/24 08:57 10/28/24 08:57 Temperature Pulse Rate [Pulse Oximeter] Respiratory Rate 20 20 Blood Pressure [Ri ght Arm] Pulse Oximetry 84 L 84 L Oxygen Delivery Me thod High Flow Nasal Ca nnula High Flow Nasal Ca nnula Oxygen Flow Rate 30 30 Fraction of Inspir ed Oxygen 30 30 Labs Labs: Laboratory Results - last 24 hr 10/28/24 05:43 WBC 11.60 H RBC 3.67 L Hgb 11.7 L Hct 37.7 MCV 103 H MCH 32 MCHC 31 L Plt Count 255 Sodium 137 Potassium 3.5 L Chloride 95 L Carbon Dioxide 36 H Anion Gap 6 L BUN 21 Creatinine 0.5 Estimated Creat Clear 31.59 Estimated GFR 98 Glucose 122 H Calcium 9.0
[2024-10-28] MEDS: PROPRANOLOL 20 MG TABLET 40 MG PO ×2 (09:35→20:16)
[2024-10-28] MEDS: cefTRIAXone 1 GM in 0.9 % SODIUM CHLORIDE Mini-bag 100 ML IVPB (09:36)
[2024-10-28] MEDS: guaiFENesin 600 MG TAB.ER.12H PO ×2 (09:36→20:17)
[2024-10-28] MEDS: GABAPENTIN 100 MG CAPSULE PO ×2 (09:36→20:18)
[2024-10-28] MEDS: buPROPion XL 150 MG TABLET 300 MG PO (09:36)
[2024-10-28] MEDS: DOXYCYCLINE HYCLATE 100 MG PO ×2 (09:36→20:18)
[2024-10-28] MEDS: METHYLPREDNISOLONE SOD SUCC 62.5 MG/ML (125) 60 MG IVP ×2 (13:29→19:38)
[2024-10-28] MEDS: ACETAMINOPHEN 325 MG TABLET 650 MG PO (15:51)
--- NOTE | 2024-10-28 16:22 | RESP.RT ---
Return to Flow 30 Lpm, patient dipped SaO2 to Mid 70s, returned to Flow of 30 Lpm, FiO2 25%
--- NOTE | 2024-10-28 17:16 | PC.NURSE ---
Shift Summary: Patient pleasant and cooperative. Up with SBA, walker and gait belt. Vitals stable, continues to need hiflo, tried to wean this evening however was unable to tolerate, o2 sats dropped to 78% at rest following attempt to wean. Poor appetite this morning for breakfast, did a little better for lunch. Up in recliner for meals.
[2024-10-28] MEDS: ENOXAPARIN 40 MG/0.4 ML INJ SUBCUT (20:19)
[2024-10-29] VITALS (13 sets, daily range): BP systolic 142–168; BP diastolic 79–101; PULSE 63–81; RESP 16–22; TEMP 36.2–36.7; O2SAT 87–95
[2024-10-29] MEDS: IPRAT-ALBUT 0.5-2.5 MG/3 ML NEB 1 NEB IH ×4 (04:41→21:34)
[2024-10-29] MEDS: METHYLPREDNISOLONE SOD SUCC 62.5 MG/ML (125) 60 MG IVP ×2 (04:41→07:53)
[2024-10-29] MEDS: ALBUTEROL SULFATE 2.5 MG/3 ML VIAL.NEB NEB ×4 (04:41→18:57)
[2024-10-29 06:08] LABS: Hematocrit 39.8 % (33.0-51.0); Hemoglobin* 12.4 gm/dL (12.0-16.0); Mean Corpuscular HGB Conc 31 gm/dL (32-36); Mean Corpuscular Hemoglobin 32 pg (26-34); Mean Corpuscular Volume 102 fL (80-100); Platelet Count* 310 K/uL (140-440); White Blood Count* 12.38 K/uL (4.50-11.00)
[2024-10-29 06:11] LABS: Slide Review Reflex No
--- NOTE | 2024-10-29 06:12 | PC.NURSE ---
Shift note: Pt was successfully weaned from the Hyflo to 1.5L of oxygen through nasal canula. At 1999, pt was pt on the 1.5L and was doing between 88 and 94. At 129 after the Albuterol neb, the O2 jumped to 95-97 and the oxygen was further decreased to 1L. She has been doing well with the 1L with O2 between 85 and 91. However, she continue to ambulate with 2-3L. She continue to has intermittent productive cough. No fever or chills recorded. Patient denied pain. She endorsed poor appetite and fluid intake.
[2024-10-29 06:19] LABS: Chloride* 94 mmol/L (96-114); Potassium* 3.2 mmol/L (3.6-5.1); Sodium* 138 mmol/L (135-149)
[2024-10-29 06:22] LABS: Blood Urea Nitrogen* 23 mg/dL (7-30); Creatinine* 0.6 mg/dL (0.5-1.5); Est. Creatinine Clearance* 31.19; Estimated Glomerular Filt Rate 94 ml/min; Glucose* 178 mg/dL (60-115)
[2024-10-29 06:29] LABS: Anion Gap 9 mEq/L (7-15); Carbon Dioxide* 35 mmol/L (20-32)
[2024-10-29] MEDS: POTASSIUM BICARB 25 MEQ EFFERVESCENT TAB PO ×2 (08:26→11:39)
[2024-10-29] MEDS: BUDESONIDE 0.5 MG/2ML NEB NEB ×2 (09:44→21:34)
[2024-10-29] MEDS: PROPRANOLOL 20 MG TABLET 40 MG PO ×2 (09:45→21:33)
[2024-10-29] MEDS: buPROPion XL 150 MG TABLET 300 MG PO (09:45)
[2024-10-29] MEDS: SENNOSIDES/DOCUSATE TABLET 1 TAB PO ×2 (09:45→21:34)
[2024-10-29] MEDS: guaiFENesin 600 MG TAB.ER.12H PO ×2 (09:45→21:33)
[2024-10-29] MEDS: DOXYCYCLINE HYCLATE 100 MG PO ×2 (09:45→21:34)
[2024-10-29] MEDS: GABAPENTIN 100 MG CAPSULE PO ×2 (09:45→21:33)
[2024-10-29] MEDS: cefTRIAXone 1 GM in 0.9 % SODIUM CHLORIDE Mini-bag 100 ML IVPB (09:46)
[2024-10-29] MEDS: ONDANSETRON 2 MG/ML inj 4 MG IVP (09:46)
[2024-10-29] MEDS: SODIUM CHLORIDE 0.9 % (FLUSH) 10 ML SYRINGE 5 ML IVF ×2 (09:46→21:34)
--- NOTE | 2024-10-29 11:04 | RESP.RT ---
Patient sitting up in chair doing Nebulizer tx. BBS diminished all christensen, no wheeze or rales noted, patient moving more air today than yesterday. Patient has good clear, improved voice today. Patient removed from HFNC at 2000pm hours last night and placed on NC 2 Lpm.
[2024-10-29] MEDS: predniSONE 20 MG TABLET 60 MG PO (11:39)
--- NOTE | 2024-10-29 15:49 | PC.NURSE ---
End of Shift: Patient pleasant and cooperative, A&O. VSS, afebrile
--- NOTE | 2024-10-29 15:50 | PC.NURSE ---
End of Shift: Patient pleasant and cooperative, A&O. VSS, afebrile. SpO2 maintained above 82% on 1-2 L O2 this shift. Denies pain this shift. Patient reports feeling nauseas this morning, PRN medication given, see MAR. Patient takes medication whole with applesauce. Patient did have a BM this shift. 1A walker and gait belt.
[2024-10-29] MEDS: ACETAMINOPHEN 325 MG TABLET 650 MG PO (15:53)
--- NOTE | 2024-10-29 16:07 | PM.IMPN1 ---
Progress Note: A&P Assessment and plan (1) Acute on chronic hypoxic respiratory failure: Problem details: -room-air oxygen saturation 75% in the ED. Baseline, per patient, is mid 80s -in setting of acute COPD exacerbation with hypercapnia -chronically oxygen dependent 2-3 L -RT for pulmonary support -small doses morphine prn comfort (her sap plant maintenance consultant once told her this might be helpful) - 10/28 clinically stabilized and possibly improving, decrease Solu-Medrol from 80 mg Q 6h to 60 mg q.6h. Has been given 3 days of ceftriaxone and doxycycline. She remains afebrile. Finish out 5 days of ceftriaxone and continue doxycycline for a total of 10 days. - 10/29 improving, decreased oxygen needs. Transition from Solu-Medrol to oral prednisone. Will likely need a long taper of this. Continue antibiotics as above. Anticipate that she may be able to go home tomorrow. May benefit from having a goals of care discussion with her primary care provider and considering hospice as an outpatient. Status: Acute (2) Acute exacerbation of chronic obstructive pulmonary disease: Problem details: -chronic oxygen dependent 2-3 L -continue oxygen supplementation to maintain saturations 82-90%, monitoring VBG for now -continue ceftriaxone and oral doxycycline as initiated in ED -triple swab negative, strep pneumo/Legionella negative -prednisone 40 mg p.o. daily x5 days - changed to IV methylprednisolone. Received first dose methylprednisolone 125 mg in ED. (expected bump in WBC noted) -scheduled nebs, p.r.n. nebs, Mucinex b.i.d. -incentive spirometry, aerobika 10/27: will decrease IV methylprednisolone from Q6H to Q8H. Continue to wean as able 10/28: Has been on methylprednisolone 80 mg IV q.6 hours for about 18 hours now, decreased to 60 mg IV q.6h and monitor. Continue high-flow nasal cannula, weaning as able 10/29: As above Status: Acute (3) Respiratory failure with hypercapnia: Problem details: -VBG pH 7.351, pCO2 70, PO2 31.6, HC03 38 on admission -serum carbon dioxide 40, baseline >30 -RT recommending high-flow oxygen. Wean as able. Consider CPAP if necessary 10/26: was off of high-flow yesterday, pCO2 has increased, congestion remains. Will restart high-flow today and monitor improvement 10/27: pCO2 improved. Has been on high flow >24 hours. VBGs as needed at this point Status: Acute (4) Tremors of nervous system: Problem details: -continue propranolol b.i.d. 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 Most recent EGD 07/2023. Did not complete further recommended studies; needs sedation for some per patient report -MANAGER LABOR DELIVERY consulted, recommendations reviewed, essentially not combining different food consistencies. Agrees with resuming outpatient work up following discharge -will f/u with PCP again for referrals (likely lapsed now) for ongoing outpatient evaluation Status: Acute (6) Constipation: Problem details: -last BM 10/28 (this am). H/o chronic constipation but not on a bowel regimen at home -continue Senna/Docusate bid, change Miralax to daily as needed. Recommend daily psyllium at home Status: Acute Subjective Time Seen by Provider: 07:48 Date Seen: 10/29/24 Interval history: Lolita tells me she is feeling better today. She is now off high-flow and on nasal cannula as of this morning. Getting to the bathroom has also been easier today; she feels less weak and does not have any dizziness with standing. Exam Narrative: Exam Narrative: General: Mild respiratory distress improving, able to speak in longer sentences today. Awake, alert, oriented x3. Answers questions appropriately. Thin, cachectic. No pallor. No jaundice. Oropharynx: Clear. Mucous membranes moist. Cardiovascular: Regular rate and rhythm. No murmurs, gallops, or rubs. Respiratory: Some air movement, no expiratory wheezes, dyspneic as above. Abdomen: Bowel sounds present. Soft, nondistended, nontender. Extremities: No lower extremity edema. Const: Vital Signs, click to edit/add: Vital Signs - 24 hr 10/28/24 16:18 10/28/24 18:32 10/28/24 19:00 Temperature 98.3 F Pulse Rate [Pulse Oximeter] 79 Respiratory Rate 20 Blood Pressure [Ri ght Arm] 155/85 H Pulse Oximetry 90 Oxygen Delivery Me thod High Flow Nasal Ca nnula Oxygen Flow Rate 25 25 Fraction of Inspir ed Oxygen 25 30 30 10/28/24 19:37 10/28/24 22:23 10/28/24 22:23 Temperature 97.9 F Pulse Rate [Pulse Oximeter] 64 64 Respiratory Rate 20 20 Blood Pressure [Ri ght Arm] 172/97 H Pulse Oximetry 95 Oxygen Delivery Me thod Nasal Cannula Oxygen Flow Rate 1.5 Fraction of Inspir ed Oxygen 30 10/29/24 03:00 10/29/24 07:30 10/29/24 07:50 Temperature 97.9 F 97.6 F Pulse Rate [Pulse Oximeter] 66 81 81 Respiratory Rate 20 20 18 Blood Pressure [Ri ght Arm] 168/83 H 153/101 H Pulse Oximetry 90 87 L Oxygen Delivery Me thod Nasal Cannula Nasal Cannula Oxygen Flow Rate 1 1 Fraction of Inspir ed Oxygen 30 10/29/24 10:40 10/29/24 11:54 Temperature 98.0 F Pulse Rate [Pulse Oximeter] 68 Respiratory Rate 22 18 Blood Pressure [Ri ght Arm] 142/84 H Pulse Oximetry 93 93 Oxygen Delivery Me thod Nasal Cannula Nasal Cannula Oxygen Flow Rate 2 1 Fraction of Inspir ed Oxygen Labs Labs: Laboratory Results - last 24 hr 10/29/24 05:38 WBC 12.38 H RBC 3.90 L Hgb 12.4 Hct 39.8 MCV 102 H MCH 32 MCHC 31 L Plt Count 310 Sodium 138 Potassium 3.2 L Chloride 94 L Carbon Dioxide 35 H Anion Gap 9 BUN 23 Creatinine 0.6 Estimated Creat Clear 31.19 Estimated GFR 94 Glucose 178 H Calcium 9.0
[2024-10-29] MEDS: ENOXAPARIN 40 MG/0.4 ML INJ SUBCUT (21:34)
[2024-10-29] MEDS: BENZOCAINE/MENTHOL 1 EACH LOZENGE MUCOUS MEM (21:49)
[2024-10-30 00:30] VITALS: PULSE 67; RESP 16
[2024-10-30] MEDS: IPRAT-ALBUT 0.5-2.5 MG/3 ML NEB 1 NEB IH ×3 (02:55→14:51)
[2024-10-30 03:00] VITALS: BP 164/99; PULSE 67; RESP 16; TEMP 36.4; O2SAT 92
--- NOTE | 2024-10-30 05:03 | PC.NURSE ---
Pt rested well this night. Remained on 1.5L NC. No labored breathing. O2 in the low 90s. Pleasant and cooperative.
[2024-10-30] MEDS: ALBUTEROL SULFATE 2.5 MG/3 ML VIAL.NEB NEB ×2 (06:14→12:44)
[2024-10-30 06:18] VITALS: TEMP 36.4
[2024-10-30] MEDS: ACETAMINOPHEN 325 MG TABLET 650 MG PO (06:18)
[2024-10-30 07:00] VITALS: BP 171/101; PULSE 74; RESP 16; TEMP 36.5; O2SAT 94
[2024-10-30] MEDS: predniSONE 20 MG TABLET 60 MG PO (08:03)
[2024-10-30] MEDS: GABAPENTIN 100 MG CAPSULE PO (09:24)
[2024-10-30] MEDS: SENNOSIDES/DOCUSATE TABLET 1 TAB PO (09:24)
[2024-10-30] MEDS: guaiFENesin 600 MG TAB.ER.12H PO (09:24)
[2024-10-30] MEDS: buPROPion XL 150 MG TABLET 300 MG PO (09:25)
[2024-10-30] MEDS: DOXYCYCLINE HYCLATE 100 MG PO (09:25)
[2024-10-30] MEDS: PROPRANOLOL 20 MG TABLET 40 MG PO (09:25)
[2024-10-30] MEDS: cefTRIAXone 1 GM in 0.9 % SODIUM CHLORIDE Mini-bag 100 ML IVPB (09:36)
[2024-10-30] MEDS: SODIUM CHLORIDE 0.9 % (FLUSH) 10 ML SYRINGE 5 ML IVF (09:38)
[2024-10-30] MEDS: 0.9 % SODIUM CHLORIDE 250 ml IV (09:47)
[2024-10-30] MEDS: BUDESONIDE 0.5 MG/2ML NEB NEB (10:01)
[2024-10-30 11:00] VITALS: BP 146/80; PULSE 64; RESP 16; TEMP 36.6; O2SAT 89
[2024-10-30] MEDS: ONDANSETRON 2 MG/ML inj 4 MG IVP (12:40)
--- NOTE | 2024-10-30 12:48 | P.DS_ITS ---
DS: Providers Provider Time Seen by Provider: 09:55 Date Seen: 10/30/24 Date of admission: 10/24/24 13:03 Primary care physician: Linda Meneses CNP Admitting Clinician: Lucita Meredith MD Consults: 10/24/24 10:16 Consult to Occupational Therapy [CONS] Routine Comment: Reason(s) for OT Consult:: Evaluate and Treat Any Restrictions?:: No Restrictions Consult to Physical Therapy [CONS] Routine Comment: Reason(s) for PT Consult:: Evaluate and Treat Any Restrictions?:: No Restrictions Consult to Respiratory Therapy [CONS] Routine Comment: Reason(s) for RT Consult:: Consult Consult to Tape Control Skin Or Spar Mill Operator [CONS] Routine Comment: Reason for Consult:: Social Service Consult 10/26/24 09:44 Consult to Speech Therapy [CONS] Routine Comment: Reason(s) for Speech Consult:: Speech/Swallowing Eval Comment: H/o dysphagia. Last worked up 2022. Hasn't completed testing. Unable to tolerate swallow studies without sedation so that will be outpatient Attending Physician on discharge: Liz Hayes MD Date of Discharge: 10/30/24 DS: Diagnosis Discharge Diagnosis (1) Acute on chronic hypoxic respiratory failure: Status: Acute Problem details: -room-air oxygen saturation 75% in the ED. Baseline, per patient, is mid 80s -in setting of acute COPD exacerbation with hypercapnia -chronically oxygen dependent 2-3 L -RT for pulmonary support -small doses morphine prn comfort (her bus aide once told her this might be helpful) - 10/28 clinically stabilized and possibly improving, decrease Solu-Medrol from 80 mg Q 6h to 60 mg q.6h. Has been given 3 days of ceftriaxone and doxycycline. She remains afebrile. Finish out 5 days of ceftriaxone and continue doxycycline for a total of 10 days. - 10/29 improving, decreased oxygen needs. Transition from Solu-Medrol to oral prednisone. Will likely need a long taper of this. Continue antibiotics as above. Anticipate that she may be able to go home tomorrow. May benefit from having a goals of care discussion with her primary care provider and considering hospice as an outpatient. - 10/30 Lolita was able to maintain oxygen saturations in the high 80s to low 90s overnight and has felt improved. Her was there for our discussion this morning and Lolita expressed a desire to be comfort cares only and be home on hospice. She desired to go home with hospice from this hospital stay because she noted how difficult it was for her to get out of the house to go see her [facility] care provider. She and her were in agreement on this plan of care. I spoke with social work who was able to get her in with [facility] tomorrow morning. Lolita and her were comfortable with her going home today to be admitted hospice tomorrow morning. (2) Acute exacerbation of chronic obstructive pulmonary disease: Status: Acute Problem details: -chronic oxygen dependent 2-3 L -continue oxygen supplementation to maintain saturations 82-90%, monitoring VBG for now -continue ceftriaxone and oral doxycycline as initiated in ED -triple swab negative, strep pneumo/Legionella negative -prednisone 40 mg p.o. daily x5 days - changed to IV methylprednisolone. Received first dose methylprednisolone 125 mg in ED. (expected bump in WBC noted) -scheduled nebs, p.r.n. nebs, Mucinex b.i.d. -incentive spirometry, aerobika 10/27: will decrease IV methylprednisolone from Q6H to Q8H. Continue to wean as able 10/28: Has been on methylprednisolone 80 mg IV q.6 hours for about 18 hours now, decreased to 60 mg IV q.6h and monitor. Continue high-flow nasal cannula, weaning as able 10/29: As above 10/30: As above (3) Respiratory failure with hypercapnia: Status: Acute Problem details: -VBG pH 7.351, pCO2 70, PO2 31.6, HC03 38 on admission -serum carbon dioxide 40, baseline >30 -RT recommending high-flow oxygen. Wean as able. Consider CPAP if necessary 10/26: was off of high-flow yesterday, pCO2 has increased, congestion remains. Will restart high-flow today and monitor improvement 10/27: pCO2 improved. Has been on high flow >24 hours. VBGs as needed at this point (4) Tremors of nervous system: Status: Chronic Problem details: -continue propranolol b.i.d. 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 Most recent EGD 07/2023. Did not complete further recommended studies; needs sedation for some per patient report -COMMERCIAL CREDIT OFFICER consulted, recommendations reviewed, essentially not combining different food consistencies. Agrees with resuming outpatient work up following discharge -will f/u with PCP again for referrals (likely lapsed now) for ongoing outpatient evaluation (6) Constipation: Status: Acute Problem details: -last BM 10/28 (this am). H/o chronic constipation but not on a bowel regimen at home -continue Senna/Docusate bid, change Miralax to daily as needed. Recommend daily psyllium at home DS: Summary Hospital Course Hospital Course: Per H&P: Lolita Sevilla is a 74 year old female past medical history significant for COPD, oxygen dependent, typically 2-3 L, hypertension, peripheral neuropathy, depressive disorder, dysphagia, GERD, tremor is admitted to the medical floor from the ED for further management acute on chronic recurrent COPD exacerbation. Patient reports increasing shortness of breath, dyspnea on exertion, cough since . Tells me she can typically walk 6 ft at the most before having to rest. Last , she was not even able to walk 6 ft. She has had an increasing congested cough. She has been using her home nebulizers without re lief. She denies recent fevers. Denies headaches or dizziness. Denies chest pain. Has had no nausea vomiting or diarrhea. Admitted for treatment of COPD exacerbation. Please see diagnoses above for full details. Multiple goals of care discussion were had with the patient and she desired to go home on comfort cares/hospice and her was agreeable with this plan. She was discharged today in improving condition on a prednisone taper, but does have end-stage COPD with weight loss and chronic dysphagia med for which she is a candidate for hospice and will be admitted to [facility] tomorrow morning. Time Spent with Patient Time attestation: Total time spent providing and/or coordinating discharge services: Exam Narrative: Exam Narrative: General: No respiratory distress. Awake, alert, oriented x3. Answers questions appropriately. Thin, cachectic. No pallor. No jaundice. Oropharynx: Clear. Mucous membranes moist. Cardiovascular: Regular rate and rhythm. No murmurs, gallops, or rubs. Respiratory: Some air movement, no expiratory wheezes, dyspneic as above. Const: Vital Signs, click to edit/add: Vital Signs - 24 hr 10/29/24 15:00 10/29/24 15:00 10/29/24 19:00 Temperature 97.1 F L 97.5 F L Pulse Rate [Pulse Oximeter] 63 72 Respiratory Rate 18 18 18 Blood Pressure [Ri ght Arm] 156/79 H 144/83 H Pulse Oximetry 88 88 Oxygen Delivery Me thod Nasal Cannula Nasal Cannula Oxygen Flow Rate 1.5 1.5 10/29/24 23:23 10/30/24 00:30 10/30/24 03:00 Temperature 97.3 F L 97.5 F L Pulse Rate [Pulse Oximeter] 67 67 67 Respiratory Rate 16 16 16 Blood Pressure [Ri ght Arm] 149/99 H 164/99 H Pulse Oximetry 95 92 Oxygen Delivery Me thod Nasal Cannula Nasal Cannula Oxygen Flow Rate 1.5 1.5 10/30/24 06:18 10/30/24 07:00 10/30/24 11:00 Temperature 97.5 F L 97.7 F 97.8 F Pulse Rate [Pulse Oximeter] 74 64 Respiratory Rate 16 16 Blood Pressure [Ri ght Arm] 171/101 H 146/80 H Pulse Oximetry 94 89 Oxygen Delivery Me thod Nasal Cannula Nasal Cannula Oxygen Flow Rate 1.5 1.5 DS: Data Data Completed and Pending Completed studies during hospitalization: 10/24/2024 EKG: Sinus tachycardia, 102 beats per minute, otherwise normal EKG. Ordering Physician: Alfonso Tang M.D. Date of Service: 10/24/24 Procedure(s): XR chest 1V portable Accession Number(s): [id number] cc: Linda Meneses CNP; Alfonso Tang M.D.~ For Patients: As a result of the Century Cures Act, medical imaging exams and procedure reports are released immediately into your electronic medical record. You may view this report before your referring provider. If you have questions, please contact your health care provider. INDICATION: Dyspnea. Cough. COMPARISON: April 09, 2022 TECHNIQUE: Single-view portable study FINDINGS: TUBES AND LINES: None. HEART AND MEDIASTINUM: The heart size is normal. The mediastinal contour appears normal for patient age. LUNGS AND PLEURAL SPACES: Probable COPD. Basilar opacities favor atelectasis or scarring over aspiration or pneumonia. Left-sided findings probably related to remote granulomatous infection.The pleural spaces are unremarkable. OSSEOUS STRUCTURES: Demineralization, degenerative changes, scoliosis and postsurgical changes. IMPRESSION: COPD pattern. Basilar opacities favor atelectasis or scarring over aspiration or pneumonia. Left-sided findings probably indicating remote granulomatous infection. Dictated by Jeremy Barnard MD @ 10/24/2024 9:06:45 AM (Electronically Signed) Discharge Plan Discharge Disposition: Xfer Home- (Hospice) Date of Admission: 10/24/24 13:03 Attending Provider on Discharge: Liz Hayes Primary Care Provider: Linda Meneses V Anticipated Discharge Date/Time: 10/30/24 13:05 Discharge Medications: New sennosides-docusate sodium [Stool Softener-Laxative] 8.6-50 mg Tablet 1 tab PO BID Qty: 60 0RF doxycycline hyclate 100 mg Tablet 100 mg PO BID 5 Days Qty: 10 0RF guaifenesin [Mucinex] 600 mg Tablet Extended Release 12hr 600 mg PO BID Qty: 20 0RF prednisone 20 mg tablet See Rx Instructions .ROUTE .COMPLEX Qty: 25 0RF Rx Instructions: 40 mg PO daily x 7 days, then 20 mg PO daily x 7 days, then 10mg PO daily x 7 days, then stop. oxycodone 5 mg capsule 5 mg PO Q6H PRN (Reason: dyspnea) Qty: 5 0RF Continued ipratropium-albuterol 0.5 mg-3 mg(2.5 mg base)/3 mL solution for nebulization 3 ml INHALATION TID PRN propranolol 40 mg tablet 40 mg PO BID budesonide 0.5 mg/2 mL suspension for nebulization 0.5 mg inhalation BID gabapentin 100 mg capsule 100 mg PO BID albuterol sulfate 90 mcg/actuation HFA aerosol inhaler 2 puff inhalation Q6H PRN (Reason: wheezing) bupropion HCl 300 mg tablet extended release 24 hr 300 mg PO QAM Discharge Orders: Discharge Order (Routine); Ordered 10/30/24 Ordered By: Liz Hayes Additional Instructions: Admit to [facility] Activity Level: No Restrictions Discharge Diet: Regular and Other Diet Detail: Per Speech Therapy, recommending regular diet/thin liquids - encouraged to select softer food items. Safe swallow strategies include sitting upright for all oral intake, remaining upright for 1 hour after meals, small bites and sips at a slow pace, alternating liquids and solids. May benefit from smaller more frequent meals or between meal supplements. Follow Up Appointments: Linda Meneses CNP [Primary Care Provider] - Forms: MyHealth Info Instructions
--- NOTE | 2024-10-30 14:07 | PC.SOCIAL ---
Discharge planning: Pt and her were interested in signing up for hospice services at home. family service worker met with the pt and her and they decided on [facility]. family service worker spoke to Sujatha Stringer at [facility] #[phone] and gave the referral. family service worker also faxed all the needed information to [facility] at fax #[phone]. family service worker also provided the pt with a copy of The Important Message from Medicare form. Pt and her were thankful for the assistance and do not plan to appeal the pt's discharge. The charge nurse on duty will fax all the discharge orders to [facility] at fax #[phone]. Social work to follow-up as needed.
--- NOTE | 2024-10-30 15:54 | PC.NURSE ---
Pt discharged @ 1530 via wheelchair. Accompanied by . Pt is AxOx4, nausea managed. IV removed. Discharged forms signed.
== END 2024-10-30 15:30 | disposition hospice, home (50) | DRG 189 ==
LOC: ED 09:31 → MEDSURG 10:03
PROVIDERS: Admitting Provider Physician Assistant; Emergency Provider Family Medicine; PCP Nurse Practitioner Family; Visit Provider Family Medicine
DX: J96.21 Acute and chronic respiratory failure with hypoxia (principal); J44.1 Chronic obstructive pulmonary disease with (acute) exacerbation; J96.22 Acute and chronic respiratory failure with hypercapnia; Z87.891 Personal history of nicotine dependence; Z99.81 Dependence on supplemental oxygen; R00.0 Tachycardia, unspecified; I10 Essential (primary) hypertension; G62.9 Polyneuropathy, unspecified; K21.9 Gastro-esophageal reflux disease without esophagitis; F32.A Depression, unspecified; R25.1 Tremor, unspecified; R13.10 Dysphagia, unspecified; K59.00 Constipation, unspecified
CPT/HCPCS: 36415; 71045; 80048; 82803; 83615; 83735; 83880; 84484; 85025; 85027; 87449; 87631; 87899; 92526; 92610; 93005; 94640; 94664; 94761; 97110; 97161; 97165; 97535; 99285; A9270; G0378; J0696; J1650; J2405; J2919; J3475; J7050; J7512; J7626